=== PATIENT | female | born 1995 | race Two or more races ===

== ENCOUNTER 2024-02-10 10:49 | Emergency (ER) | payer OTHER ==
[~2024-02-10] VITALS: Ht 167.6 cm; Wt 52.2 kg
[2024-02-10] MEDS ORDERED: PREDNISONE25 GM (12:08)
[2024-02-10] MEDS ORDERED: 0.9 % SODIUM CHLORIDE 1,000 ML IV STA (12:42)
[2024-02-10] MEDS ORDERED: DIATRIZOATE MEGLUMINE, SODIUM 30 ML BOTTLE ONE (13:01)
[2024-02-10 13:07] LABS: HEMATOCRIT 26.9 % (36.0-45.00); MEAN CELL VOLUME 72.3 fL (80.00-100.00); MEAN CORPUSCULAR HEMOGLOBIN 22.5 pg (27.00-32.0); MEAN CORPUSCULAR HGB CONC 31.2 g/dl (32.0-36.0); PLATELET COUNT 347 K/uL (150-450); RED BLOOD COUNT 3.72 M/uL (4.00-6.00); RED CELL DISTRIBUTION WIDTH 17.2 % (11.5-14.5)
[2024-02-10 13:13] LABS: HEMOGLOBIN 8.4 g/dL (12.0-15.00)
[2024-02-10 13:25] LABS: CALCIUM 9.1 mg/dL (8.5-10.1); CREATININE SERUM 0.79 mg/dL (0.55-1.02); GFR 86.04; POTASSIUM 3.9 mEq/L (3.5-5.1)
[2024-02-10 14:17] LABS: URINE APPEARANCE Clear; URINE BILIRRUBIN Negative (NEGATIVE); URINE BLOOD Moderate; URINE COLOR Yellow; URINE GLUCOSE Negative (NEGATIVE); URINE KETONE Negative (NEGATIVE); URINE LEUKOCYTE Small; URINE NITRATE Negative; URINE PROTEIN Negative (NEGATIVE); URINE UROBILINOGEN 0.2 E.U./dl
[2024-02-10 14:21] LABS: URINE BACTERIA 153.6 uL (0.0-1933); URINE RBC 11.4 uL (0.0-20.8); URINE WBC 52.2 uL (0.0-23.2)
[2024-02-10 14:49] LABS: URINE CAST 0.15 uL (0.0-1.40)
[2024-02-10] MEDS ORDERED: METRONIDAZOLE/SODIUM CHLORIDE 500 MG/100 ML PIGGYBACK IV ONE ×2 (18:00→18:10)
[2024-02-10] MEDS ORDERED: MORPHINE SULFATE 4 MG/ML VIAL IV ONE (18:00)
== END 2024-02-10 21:49 | disposition designated cancer center or children's hospital (05) ==
LOC: ER 10:51
PROVIDERS: Emergency Medicine
DX: K62.5 Hemorrhage of anus and rectum (principal); K50.90 Crohn's disease, unspecified, without complications